=== PATIENT | female | born 1955 ===

== ENCOUNTER 2025-01-07 00:05 | Observation (INO) | payer OTHER ==
[~2025-01-07] VITALS: Ht 162.6 cm; Wt 77.1 kg
[2025-01-07 00:33] LABS: BASOPHILS ABSOLUTE AUTO 0.06 K/mm3 (0.00-0.23); BASOPHILS PERCENT AUTO 1 % (0-2); EOSINOPHILS ABSOLUTE AUTO 0.19 K/mm3 (0.00-0.68); EOSINOPHILS PERCENT AUTO 2 % (0-6); Hematocrit 30.6 % (33.0-51.0); Hemoglobin 10.1 g/dL (11.5-16.0); IMMATURE GRAN ABSOLUTE AUTO 0.08 K/mm3 (0.00-0.10); IMMATURE GRAN PERCENT AUTO 1 % (0-1); LYMPHOCYTES ABSOLUTE AUTO 3.25 K/mm3 (0.84-5.20); LYMPHOCYTES PERCENT AUTO 26 % (21-46); MONOCYTES ABSOLUTE AUTO 1.02 K/mm3 (0.16-1.47); MONOCYTES PERCENT AUTO 8 % (4-13); Mean Corpuscular HGB 31.2 pg (26.0-34.0); Mean Corpuscular Volume 94 fL (80-100); Mean Platelet Volume 11.4 fL (9.1-12.4); NEUTROPHILS ABSOLUTE AUTO 7.86 K/mm3 (1.96-9.15); NEUTROPHILS PERCENT AUTO 63 % (41-73); Platelet Count 222 K/mm3 (150-400); RDW Coefficient Variation 14.6 % (11.7-14.2); RDW Standard Deviation 49.7 fL (35.1-46.3); Red Blood Cell Count 3.24 M/mm3 (3.80-5.20); White Blood Cell Count 12.46 K/mm3 (4.00-11.30)
[2025-01-07 00:50] LABS: Albumin, Blood 3.7 g/dL (3.4-5.0); Albumin/Globulin Ratio 0.8 (0.8-1.8); Bilirubin, Total 0.6 mg/dL (0.1-1.0); Bun/Creatinine Ratio 18.5 (12.0-20.0); Calcium, Blood 10.1 mg/dL (8.5-10.1); Creatinine, Blood 2.05 mg/dL (0.40-1.00); Globulin, Blood 4.4 g/dL (2.2-4.0); Potassium, Blood 4.9 mmol/L (3.5-5.5); Total Protein, Blood 8.1 g/dL (6.4-8.2)
[2025-01-07] MEDS ORDERED: HYDROmorphone HCl/Pf 1MG SYR IV ONE ×3 (01:40→04:25)
[2025-01-07] MEDS ORDERED: Methocarbamol 500 MG Tab PO ONE (04:25)
[2025-01-07] MEDS ORDERED: FentaNYL Citrate 50 MCG/ML 2 ML Injection IV PRN (06:20)
[2025-01-07] MEDS ORDERED: HYDROcodone 7.5-APAP 325 TAB PO PRN (07:15)
[2025-01-07] MEDS ORDERED: Acetaminophen 325 MG TABLET PO PRN (07:15)
[2025-01-07] MEDS ORDERED: HYDROmorphone HCl/Pf 1MG SYR IV PRN (07:15)
[2025-01-07] MEDS ORDERED: Polyethylene Glycol 3350 17 gm PO PRN (07:20)
[2025-01-07] MEDS ORDERED: OxyCODONE HCL 5 MG TAB PO PRN ×2 (07:20→09:00)
[2025-01-07] MEDS ORDERED: Ondansetron HCl 2 MG / ML 2ML Vial IV PRN (07:20)
[2025-01-07] MEDS ORDERED: Naloxone HCl 0.4MG / ML 1ML Vial IV PRN (07:20)
[2025-01-07] MEDS ORDERED: HydrALAZINE HCl 20 MG / ML 1ML Vial IV PRN (07:30)
[2025-01-07] MEDS ORDERED: Prochlorperazine Edisylate 10 mg Vial IV PRN (07:30)
[2025-01-07] MEDS ORDERED: NS 1,000 ML IV SCH (07:50)
[2025-01-07] MEDS ORDERED: DAPTOMYCIN500 M3 IV (08:52)
[2025-01-07] MEDS ORDERED: LINZESS145 MCG PO (08:52)
[2025-01-07] MEDS ORDERED: LISINOPRIL-HCT1 EAC1 PO ×2 (08:52→10:34)
[2025-01-07] MEDS ORDERED: SULFAMETHOXAZO1 EAC1 PO (08:52)
[2025-01-07] MEDS ORDERED: NEURONTIN300 MG PO (08:53)
[2025-01-07] MEDS ORDERED: ATORVASTATIN CA20 MG PO (08:53)
[2025-01-07] MEDS ORDERED: MEROPENEM114 IV (08:53)
[2025-01-07] MEDS ORDERED: FLUC200 PO (08:53)
[2025-01-07] MEDS ORDERED: MONT10T PO ×2 (08:54→10:38)
[2025-01-07] MEDS ORDERED: QUETIAPINE FUMA25 MG PO (08:55)
[2025-01-07] MEDS ORDERED: Methocarbamol750 MG PO (08:55)
[2025-01-07] MEDS ORDERED: PANTOPRAZOLE SO2010 PO (09:00)
[2025-01-07] MEDS ORDERED: Lidocaine 4% 1 Patch TOP SCH (09:00)
[2025-01-07] MEDS ORDERED: Docusate Sodium Liquid 100 MG UDC PO SCH (09:00)
[2025-01-07] MEDS ORDERED: Methocarbamol 500 MG Tab PO PRN ×2 (09:00→15:10)
--- NOTE | 2025-01-07 10:10 | NUR ---
PT ARRIVED TO THE ROOM AT APPROXIMATELY 1010 FROM ER. PT PAINFUL WITH MOVEMENT/REPOSITIONING BUT WAS ABLE TO STAND AND TRANSFER TO THE BED. PT EDUCATED TO USE THE CALL LIGHT AND ORIENTED TO THE UNIT. VSS.
[2025-01-07 10:15] VITALS: BP 134/62
[2025-01-07] MEDS ORDERED: DOCU100 PO (10:28)
[2025-01-07] MEDS ORDERED: DULO60 PO (10:28)
[2025-01-07] MEDS ORDERED: FEROSUL325 M1 PO (10:30)
[2025-01-07] MEDS ORDERED: FOLI1 PO (10:32)
[2025-01-07] MEDS ORDERED: GABA300 PO (10:32)
[2025-01-07] MEDS ORDERED: FLONASE ALLERG9.9 M2 INH (10:32)
[2025-01-07] MEDS ORDERED: LINZESS72 MCG PO (10:33)
[2025-01-07] MEDS ORDERED: Loratadine10 MG PO (10:34)
[2025-01-07] MEDS ORDERED: MAGNESIUM OXID500 MG PO (10:35)
[2025-01-07] MEDS ORDERED: Robaxin750 MG PO (10:36)
[2025-01-07] MEDS ORDERED: SULTRIDS PO (10:37)
[2025-01-07] MEDS ORDERED: OXYC5 PO (10:38)
[2025-01-07] MEDS ORDERED: PANT20 PO (10:38)
[2025-01-07] MEDS ORDERED: MIRALAX17 GM PO (10:39)
[2025-01-07] MEDS ORDERED: QUET25 PO (10:40)
[2025-01-07] MEDS ORDERED: PROM25 PO (10:40)
[2025-01-07] MEDS ORDERED: ACET325 PO (10:42)
[2025-01-07] MEDS ORDERED: VISINE RED EYE H8 ML BOTHEYES (10:42)
[2025-01-07] MEDS ORDERED: Acetaminophen 500 MG Tab PO SCH (12:00)
[2025-01-07] MEDS ORDERED: Trimethoprim/Sulfamethoxazole DS Tab PO SCH (15:00)
--- NOTE | 2025-01-07 15:00 | NUR ---
PT HAS A PICC LINE PRESENT TO HER L UPPER ARM. PT REPORTS PICC LINE WAS PLACED APPROXIMATELY 6 WEEKS AGO FOR IV ABX INFUSIONS. SHE REPORTS THE IV ABX HAVE BEEN DISCONTINUED AND SHE IS NOW TAKING PO ABX. SHE REPORTS THAT THE PLAN IS TO REMOVE THE PICC LINE WHEN SHE RETURNS TO [place] UNLESS WE CAN REMOVE IT WHILE SHE IS HERE. PICC LINE DRESSING IS TEGADERM WITH GAUZE UNDER THE DRESSING, NO SIGNS OR SYMPTOMS OF INFECTION AROUND PICC LINE INSERTION SITE. PER PT THIS TYPE OF DRESSING OVER HER PICC LINE IS WHAT HAS BEEN USED SINCE SHE HAS SENSITIVITY TO ADHESIVE. SPOKE WITH DR. HORN, BAL TO USE PICC LINE UNLESS PT DEVELOPS SIGNS/SYMPTOMS OF INFECTION.
[2025-01-07 15:06] VITALS: BP 157/64
[2025-01-07] MEDS ORDERED: Promethazine HCl 25 MG Tab PO PRN (15:15)
[2025-01-07] MEDS ORDERED: Pantoprazole Sodium 20 MG Tab PO SCH (16:30)
--- NOTE | 2025-01-07 19:41 | NUR ---
SHIFT SUMMARY PAIN HAS BEEN MANAGED WITH PO PAIN MEDICATION. PT REMAINS ON 2L O2 VIA NC. SHE IS A 1 ASSIST WITH GAIT BELT AND WALKER WHEN OOB. PT IS TOLERATING PO. SHE USES HER CALL LIGHT APPROPRIATELY. BEDSIDE REPORT GIVEN TO [facility]ATHERS.
[2025-01-07 19:55] VITALS: BP 141/63
[2025-01-07] MEDS ORDERED: Lisinopril 20 MG Tab PO SCH (21:00)
[2025-01-07] MEDS ORDERED: HydroCHLOROthiazide 25 mg Tab PO SCH (21:00)
[2025-01-07] MEDS ORDERED: Methocarbamol 500 MG Tab PO SCH (21:00)
[2025-01-07] MEDS ORDERED: Gabapentin 300 MG Cap PO SCH (21:00)
[2025-01-07] MEDS ORDERED: QUEtiapine Fumarate 50 MG TAB PO SCH (21:00)
[2025-01-08 04:13] VITALS: BP 132/69
[2025-01-08 05:43] LABS: Hematocrit 25.3 % (33.0-51.0); Hemoglobin 8.5 g/dL (11.5-16.0); Mean Corpuscular HGB 31.6 pg (26.0-34.0); Mean Corpuscular HGB Conc 33.6 g/dL (31.5-36.5); Mean Corpuscular Volume 94 fL (80-100); Mean Platelet Volume 11.7 fL (9.1-12.4); Platelet Count 124 K/mm3 (150-400); RDW Coefficient Variation 14.6 % (11.7-14.2); RDW Standard Deviation 50.1 fL (35.1-46.3); Red Blood Cell Count 2.69 M/mm3 (3.80-5.20); White Blood Cell Count 7.13 K/mm3 (4.00-11.30)
--- NOTE | 2025-01-08 06:00 | NUR ---
SHIFT SUMMARY PT HAS RESTED OFF AND ON T/O THE NIGHT. LEFT RIB PAIN MANAGED WITH MEDS PER EMAR. PT VERY PAINFUL WITH MOVEMENT. 2L O2 IN PLACE, PT DESATS WHEN ON RA. PT HAS BEEN UP AND AMBUALTING WITH 1 PA/FWW. ON TELE, NSR. PLAN OF CARE REMAINS UNCHANGED. BED IN LOWEST POSITION, CALL LIGHT WITHIN REACH.
[2025-01-08 06:21] LABS: Creatinine, Blood 1.91 mg/dL (0.40-1.00); Magnesium, Blood 1.5 mg/dL (1.6-2.4); Potassium, Blood 4.9 mmol/L (3.5-5.5)
[2025-01-08 07:00] VITALS: BP 126/56
[2025-01-08] MEDS ORDERED: NS 500 ML IV SCH (08:35)
[2025-01-08] MEDS ORDERED: HydrALAZINE HCl 20 MG / ML 1ML Vial IV PRN (08:35)
[2025-01-08] MEDS ORDERED: Fluconazole 100 MG Tab PO SCH (09:00)
[2025-01-08] MEDS ORDERED: Atorvastatin 10 MG Tab PO SCH (09:00)
[2025-01-08] MEDS ORDERED: LINACLOTIDE 72 MCG CAPSULE PO SCH (09:00)
[2025-01-08] MEDS ORDERED: Loratadine 10 MG Tab PO SCH (09:00)
[2025-01-08] MEDS ORDERED: Folic Acid 1 MG TAB PO SCH (09:00)
[2025-01-08] MEDS ORDERED: Ferrous Sulfate 325 MG Tab PO SCH (09:00)
[2025-01-08] MEDS ORDERED: Magnesium Oxide 400 MG Tab PO SCH (09:00)
[2025-01-08] MEDS ORDERED: Fluticasone 0.05% Nasal Spray SCH (09:00)
[2025-01-08] MEDS ORDERED: Montelukast Sodium 10 MG Tab PO SCH (09:00)
[2025-01-08] MEDS ORDERED: DULoxetine HCL 60 MG Capsule DR PO SCH (09:00)
--- NOTE | 2025-01-08 10:37 | NUR ---
PXRAY IN WITH PT FOR SHOULDER IMAGING
[2025-01-08] MEDS ORDERED: OxyCODONE HCL 5 MG TAB PO SCH (12:00)
[2025-01-08 12:43] VITALS: BP 130/66
--- NOTE | 2025-01-08 16:54 | NUR ---
PICC DRESSING TAKEN DOWN. SITE CLEANSED WITH CHLORHEXADINE. BIOPATCH PLACED. SECURED WITH PT'S NON IRRITANT TEGADERM PROVIDED. DRESSING DATED AND SECURED.
[2025-01-08 19:43] VITALS: BP 166/58
[2025-01-08] MEDS ORDERED: Docusate Sodium/Senna 1 Tab PO SCH (21:00)
[2025-01-08] MEDS ORDERED: Trimethoprim/Sulfamethoxazole SS Tab PO SCH (21:00)
[2025-01-08] MEDS ORDERED: Gabapentin 300 MG Cap PO SCH (21:00)
[2025-01-08] MEDS ORDERED: Polyethylene Glycol 3350 17 gm PO SCH (21:00)
[2025-01-09 00:17] VITALS: BP 150/52
[2025-01-09 04:09] VITALS: BP 146/65
--- NOTE | 2025-01-09 04:49 | NUR ---
AT APPROXIMATELY 0345 PT CALLED FOR ASSISTANCE USING CALL LIGHT. WHEN THIS RN ENTERED THE ROOM PT STATED "SO WHATS THE DEAL WITH MY MEDS" WHILE HOLDING HER PURSE IN HER HAND. ASKED PT TO CLARIFY WHAT SHE MEANT AND SHE STATED THAT HER HOME BOTTLE OF OXYCODONE WAS MISSING MOST OF THE PILLS. PT SHOWED ME BOTTLE AND SAID THERE WERE ONLY 2 PILLS LEFT WHEN SHE SHOULD HAVE "CLOSE TO 60". THIS RN WAS UNAWARE THAT PT HAD HOME MEDS WITH HER AND ASKED IF PT'S DAUGHTER MAY HAVE THEM WITH HER OR IF THEY COULD BE IN HER CAR. ALSO ASKED IF PT CHECKED THE MEDS IN WITH STAFF WHEN SHE WAS ADMITTED AND IF THEY SECURED THEM IN THE PHARMACY. PT STATED "MY DAUGHTER LIVES WITH ME AND SHE WOULD NEVER DO THAT". PT THEN ACCUSED THIS RN OF STEALING HER MEDS AND SAID SHE WOULD CALL THE POLICE. I STATED THAT I DID NOT TAKE ANY OF HER MEDICATIONS AND THAT I WOULD HAVE THE DATE PULLER COME AND SPEAK TO HER. PT BECAME DEFENSIVE AND STATED "WHATS THE CALCULATING MACHINE OPERATOR GOING TO DO? I'M GOING TO CALL THE POLICE". THIS RN LEFT THE ROOM AND CALLED DATE PULLER YIFAN TO EXPLAIN SITUATION. A FEW MINUTES LATER PT USED HER CALL LIGHT AGAIN. PT THEN STATED "I AM SO SORRY AND HAVE TO HUMBLY APPOLIGIZE BECAUSE I JUST SPOKE TO MY DAUGHTER AND SHE DOES HAVE THEM WITH HER". PT'S HOME OXYCODONE THEN COUNTED WITH CHARGE NURSE KELLY AND THE PT AND THE BOTTLE TAKEN TO PHARMACY TO BE LOCKED UP UNTIL PT DISCHARGES. PT REPORTED THAT SHE HAS HAD ISSUES IN THE PAST WITH PEOPLE TAKING HER NARCOTICS AND THAT SHE JUMPED TO CONCLUSIONS AND WAS VERY EMBARRASED AND SORRY.
--- NOTE | 2025-01-09 05:01 | NUR ---
CUMULATIVE EFFECTS ANALYST SUMMARY PT REPORTS THAT PAIN HAS BEEN MUCH BETTER CONTROLLED TONIGHT NOW THAT OXYCODONE DOSE CHANGED TO 15 MG Q4 SCHEDULED. PT DOES STILL GET QUITE PAINFUL WITH AMBULATION. HAS GOTTEN UP TO THE BATHROOM SEVERAL TIMES TO URINATE. REPORTS PASSING GAS BUT NO BM'S TONIGHT. O2 TITRATED FROM 2L DOWN TO 1L AND SATS HAVE BEEN >90%. UNKNOWN TO THIS RN PT HAD HER HOME OXYCODONE IN HER PURSE AND AT ONE POINT ACCUSED STAFF OF STEALING SOME OF THE PILLS. PT THEN DISCOVERED THAT HER DTR HAD THEM AND APOLIGIZED TO STAFF, SEE PREVIOUS NOTE FOR MORE DETAILS. HER HOME MEDS WERE TAKEN TO PHARMACY TO BE LOCKED UP UNTIL PT DC'S. VSS, WILL CONTINUE TO MONITOR.
[2025-01-09 07:08] VITALS: BP 152/107
[2025-01-09 07:09] VITALS: BP 161/70
[2025-01-09 08:22] LABS: Hematocrit 25.1 % (33.0-51.0); Hemoglobin 8.2 g/dL (11.5-16.0); Mean Corpuscular HGB 31.1 pg (26.0-34.0); Mean Corpuscular HGB Conc 32.7 g/dL (31.5-36.5); Mean Corpuscular Volume 95 fL (80-100); Platelet Count 135 K/mm3 (150-400); RDW Coefficient Variation 14.8 % (11.7-14.2); RDW Standard Deviation 51.4 fL (35.1-46.3); Red Blood Cell Count 2.64 M/mm3 (3.80-5.20); White Blood Cell Count 6.73 K/mm3 (4.00-11.30)
[2025-01-09 08:36] LABS: Bun/Creatinine Ratio 28.2 (12.0-20.0); Calcium, Blood 9.7 mg/dL (8.5-10.1); Creatinine, Blood 1.24 mg/dL (0.40-1.00); Potassium, Blood 5.6 mmol/L (3.5-5.5)
[2025-01-09] MEDS ORDERED: DULoxetine HCL 60 MG Capsule DR PO SCH (09:00)
[2025-01-09] MEDS ORDERED: AmLODIPine Besylate 5 MG Tab PO SCH (09:00)
[2025-01-09] MEDS ORDERED: OxyCODONE HCL 15 MG TAB.SR.12H PO SCH (09:00)
[2025-01-09] MEDS ORDERED: Fluconazole 100 MG Tab PO SCH (09:00)
[2025-01-09] MEDS ORDERED: DULoxetine HCL 60 MG Capsule DR PO ONE (09:40)
[2025-01-09] MEDS ORDERED: ACET500 PO (11:54)
[2025-01-09] MEDS ORDERED: LIDO700A20 TOP (11:54)
[2025-01-09] MEDS ORDERED: OXYCONTIN30 MG PO (11:55)
[2025-01-09] MEDS ORDERED: SENN187 PO (11:55)
--- NOTE | 2025-01-09 13:48 | NUR ---
PICC LINE DC'D PER PROTOCOL. THREADS/SUTURES CUT AND LINE COVERED WITH VASOLINE IMPREGNATED GAUZE AND 4X4. LINE PULLED WHILE PT VALSALVING. SECURED WITH TAPE AFTER HEMOSTASIS OBTAINED WITH DIRECT PRESSURE. WILL CONTINUE TO MONITOR.
--- NOTE | 2025-01-09 14:00 | NUR ---
DC INSTRUCT REVIEWED WITH PT. HANDWRITTEN RX OXYCONTIN AND DILAUDID PO DISPENSED. PRINTED INSTRUCT DISPENSED. STATED UNDERSTANDING. DC'D INTO SELF CARE ACCOMPANIED BY ADULT DAUGHTER.
[2025-01-09] MEDS ORDERED: Trimethoprim/Sulfamethoxazole DS Tab PO SCH (21:00)
[2025-01-10] MEDS ORDERED: DULoxetine HCL 60 MG Capsule DR PO SCH (09:00)
== END 2025-01-09 14:42 | disposition home or self-care (01) ==
LOC: ER 00:05 → SURS 00:06 → ERHOLD 00:06 → SURS 09:46
PROVIDERS: Emergency Medicine; Hospitalist; ADMIT Surgery
DX: S22.42XA Multiple fractures of ribs, left side, initial encounter for closed fracture (principal); M86.9 Osteomyelitis, unspecified; I10 Essential (primary) hypertension; J96.91 Respiratory failure, unspecified with hypoxia; E78.5 Hyperlipidemia, unspecified; G89.29 Other chronic pain; F17.290 Nicotine dependence, other tobacco product, uncomplicated; Z88.5 Allergy status to narcotic agent; Z79.899 Other long term (current) drug therapy; W01.0XXA Fall on same level from slipping, tripping and stumbling without subsequent striking against object, initial encounter
CPT/HCPCS: 36415; 70450; 71045; 71046; 71250; 72125; 73030; 80048; 80053; 83735; 84484; 85025; 85027; 93005; 93010; 94762; 97110; 97161; 97530; 99285-25; A9270; G0378; J1171; J2405; J2470; J7030; J7040

== ENCOUNTER 2025-01-10 13:45 | Emergency (ER) | payer OTHER ==
[~2025-01-10] VITALS: Ht 162.6 cm; Wt 80.7 kg
[~2025-01-10 13:45] MED LIST: ACET325 PO; ACET500 PO; ATORVASTATIN CA20 MG PO; DAPTOMYCIN500 M3 IV; DOCU100 PO; DULO60 PO; FEROSUL325 M1 PO; FLONASE ALLERG9.9 M2 INH; FLUC200 PO; FOLI1 PO; GABA300 PO; LIDO700A20 TOP; LINZESS145 MCG PO; LINZESS72 MCG PO; LISINOPRIL-HCT1 EAC1 PO; Loratadine10 MG PO; MAGNESIUM OXID500 MG PO; MEROPENEM114 IV; MIRALAX17 GM PO; MONT10T PO; Methocarbamol750 MG PO; NEURONTIN300 MG PO; OXYC5 PO; OXYCONTIN30 MG PO; PANT20 PO; PANTOPRAZOLE SO2010 PO; PROM25 PO; QUET25 PO; QUETIAPINE FUMA25 MG PO; Robaxin750 MG PO; SENN187 PO; SULFAMETHOXAZO1 EAC1 PO; SULTRIDS PO; VISINE RED EYE H8 ML BOTHEYES
== END 2025-01-10 16:03 | disposition home or self-care (01) ==
LOC: ER 13:45
DX: Z76.0 Encounter for issue of repeat prescription (principal); Z53.29 Procedure and treatment not carried out because of patient's decision for other reasons; Z88.5 Allergy status to narcotic agent; Z91.048 Other nonmedicinal substance allergy status; Z79.899 Other long term (current) drug therapy; Z79.01 Long term (current) use of anticoagulants
CPT/HCPCS: 99282